=== PATIENT | female | born 2000 | race African-American/Black ===

== ENCOUNTER 2020-07-03 05:12 | Emergency (ER) | payer MEDICAID ==
[~2020-07-03] VITALS: Ht 167.6 cm; Wt 52.0 kg
[2020-07-03 05:32] VITALS: BP 149/83
[2020-07-03 06:48] LABS: CLARITY URINE CLEAR (CLEAR); COLOR URINE YELLOW (YELLOW); KETONES URINE NEGATIVE (NEGATIVE); LEUKOCYTE ESTERASE URINE 2+ (NEGATIVE); NITRITE URINE NEGATIVE (NEGATIVE); OCCULT BLOOD URINE NEGATIVE (NEGATIVE); PH URINE 7.5 (4.5-8.0); PROTEIN URINE NEGATIVE (NEGATIVE); SPECIFIC GRAVITY URINE 1.008 (1.005-1.030)
[2020-07-03] MEDS ORDERED: ACETAMINOPHEN WITH CODEINE 300/30MG TABLET PO ONE (07:00)
== END 2020-07-03 07:58 | disposition home or self-care (01) ==
LOC: ER 05:12
DX: N39.0 Urinary tract infection, site not specified (principal); F12.90 Cannabis use, unspecified, uncomplicated
CPT/HCPCS: 71101; 76705; 81003; 81025; 99285